=== PATIENT | male | born 1980 | race Caucasian/White ===

== ENCOUNTER 2017-07-27 21:04 | Emergency (ER) | payer OTHER ==
[~2017-07-27] VITALS: Ht 167.6 cm; Wt 103.6 kg
[~2017-07-27 21:04] MED LIST: IBUP-1451 PO
[2017-07-27 21:16] VITALS: TEMP 36.7; Ht 167.6 cm; Wt 103.6 kg
[2017-07-27] MEDS ORDERED: ALBUTEROL 0.083% NEBU SOLN 3 ML VIAL INH STA (21:30)
[2017-07-27] MEDS ORDERED: ALBUTEROL HFA 8 GM INHALER INH ONE (21:30)
[2017-07-27] MEDS ORDERED: SODIUM CHLORIDE 0.9% 1000ML 1,000 ML IV STA (21:30)
[2017-07-27] MEDS ORDERED: KETOROLAC TROMETHAMINE 30 MG/ML VIAL IV STA (21:30)
--- NOTE | 2017-07-27 21:32 | EMERGENCY ROOM VISIT NOTE ---
History Report prepared by Hannah: Ambrose Patel Under the Supervision of: Dr. Juan Antonio Hinkel M.D. First contact with patient: 21:25 Chief Complaint: FLU LIKE SX Stated Complaint: FLU LIKE SX History of Present Illness The patient is a 36 year old male who presents to the Emergency Room with complaints of persistent flu-like symptoms that started 3 days ago. He states that he has been nauseated, and has not been eating well. The patient notes that he has felt tightness in his chest, with fevers, chills, generalized body aches, a cough, and headaches. The patient says that has a bit of right-sided abdominal pain. He denies any diarrhea. The patient says that he last took Tylenol around 1500 today. He notes that he is a non-smoker. Source of History: patient Onset: 3 days ago Position: other (global) Quality: other (flu-like symptoms) Timing: other (persistent) Associated Symptoms: + fevers, + chills, + headache, + cough, + chest pain, + nausea, + abdominal pain, No diarrhea Note: Generalized body aches. Review of Systems See HPI for pertinent positives & negatives. A total of 10 systems reviewed and were otherwise negative. Past Medical & Surgical Medical Problems: (1) No pertinent past medical history Family History No pertinent family history Social History Smoking Status: Former Smoker Marital Status: in relationship Housing Status: lives with family Occupation Status: unemployed Current/Historical Medications Scheduled Azithromycin (Zithromax), 250 MG PO DAILY Prednisone (Prednisone Tab), 0 PO DAILY Allergies Coded Allergies: Dexmethylphenidate (Verified Allergy, Mild, HIVES, 10/20/11) Tramadol (Verified Adverse Reaction, Intermediate, DIZZY, 07/27/17) Fentanyl (Verified Adverse Reaction, Mild, DIZZY, 07/27/17) Physical Exam Vital Signs Date Time Temp Pulse Resp B/P (MAP) Pulse Ox O2 Delivery O2 Flow Rate FiO2 07/27/17 23:39 99 20 137/85 96 07/27/17 23:11 96 20 135/75 98 Room Air 07/27/17 22:33 84 07/27/17 22:24 98 Room Air 07/27/17 22:24 80 18 111/67 98 Room Air 07/27/17 21:16 36.7 106 18 111/75 96 Room Air Physical Exam GENERAL: Awake, alert, well-appearing, in no acute distress HENT: Normocephalic, atraumatic. Oropharynx unremarkable. EYES: Normal conjunctiva. Sclera non-icteric. NECK: Supple. No nuchal rigidity. FROM. No JVD. RESPIRATORY: Bilateral wheezes in the bases. CARDIAC: Regular rate, normal rhythm. Extremities warm and well perfused. Pulses equal. ABDOMEN: Soft, non-distended. No tenderness to palpation. No rebound or guarding. No masses. RECTAL: Deferred. MUSCULOSKELETAL: Chest examination reveals no tenderness. The back is symmetrical on inspection without obvious abnormality. There is no CVA tenderness to palpation. No joint edema. LOWER EXTREMITIES: Calves are equal size bilaterally and non-tender. No edema. No discoloration. NEURO: Normal sensorium. No sensory or motor deficits noted. SKIN: No rash or jaundice noted. Medical Decision & Procedures ER Provider Diagnostic Interpretation: CHEST ONE VIEW PORTABLE CLINICAL HISTORY: 36 years-old Male presenting with Pt c/o SOB. TECHNIQUE: Portable upright AP view of the chest was obtained. COMPARISON: . FINDINGS: Cardiomediastinal silhouette normal. Lungs and pleural spaces clear. Osseous structures normal. Upper abdomen normal. IMPRESSION: 1. No acute cardiopulmonary disease. Electronically signed by: Khoi Cardoso M.D. 07/27/2017 10:08 PM Dictated Date/Time: 07/27/2017 10:08 PM The status of this report is Signed. Draft = Not yet reviewed or approved by Radiologist. Signed = Reviewed and approved by Radiologist. Laboratory Results 07/27/17 22:45 Red Blood Count 5.26, Mean Corpuscular Volume 89.0, Mean Corpuscular Hemoglobin 31.4, Mean Corpuscular Hemoglobin Concent 35.3, Mean Platelet Volume 9.3, Neutrophils (%) (Auto) 59.8, Lymphocytes (%) (Auto) 24.1, Monocytes (%) (Auto) 14.5, Eosinophils (%) (Auto) 1.2, Basophils (%) (Auto) 0.2, Neutrophils # (Auto ) 3.55, Lymphocytes # (Auto) 1.43, Monocytes # (Auto) 0.86, Eosinophils # (Auto ) 0.07, Basophils # (Auto) 0.01 07/27/17 22:45 Test 07/27/17 22:00 07/27/17 22:25 07/27/17 22:45 Influenza Type A Antigen Neg for Influ A (NEG) Influenza Type B Antigen Neg for Influ B (NEG) Urine Color DK YELLOW Urine Appearance CLEAR (CLEAR) Urine pH 5.0 (4.5-7.5) Urine Specific [place] 1.029 (1.000-1.030) Urine Protein NEG (NEG) Urine Glucose (UA) NEG (NEG) Urine Ketones NEG (NEG) Urine Occult Blood NEG (NEG) Urine Nitrite NEG (NEG) Urine Bilirubin NEG (NEG) Urine Urobilinogen NEG (NEG) Urine Leukocyte Esterase NEG (NEG) White Blood Count 5.93 K/uL (4.8-10.8) Red Blood Count 5.26 M/uL (4.7-6.1) Hemoglobin 16.5 g/dL (14.0-18.0) Hematocrit 46.8 % (42-52) Mean Corpuscular Volume 89.0 fL (80-100) Mean Corpuscular Hemoglobin 31.4 pg (25-34) Mean Corpuscular Hemoglobin Concent 35.3 g/dl (32-36) Platelet Count 187 K/uL (130-400) Mean Platelet Volume 9.3 fL (7.4-10.4) Neutrophils (%) (Auto) 59.8 % Lymphocytes (%) (Auto) 24.1 % Monocytes (%) (Auto) 14.5 % Eosinophils (%) (Auto) 1.2 % Basophils (%) (Auto) 0.2 % Neutrophils # (Auto) 3.55 K/uL (1.4-6.5) Lymphocytes # (Auto) 1.43 K/uL (1.2-3.4) Monocytes # (Auto) 0.86 K/uL (0.11-0.59) Eosinophils # (Auto) 0.07 K/uL (0-0.5) Basophils # (Auto) 0.01 K/uL (0-0.2) RDW Standard Deviation 40.6 fL (36.4-46.3) RDW Coefficient of Variation 12.6 % (11.5-14.5) Immature Granulocyte % (Auto) 0.2 % Immature Granulocyte # (Auto) 0.01 K/uL (0.00-0.02) Anion Gap 8.0 mmol/L (3-11) Est Creatinine Clear Calc Drug Dose 98.2 ml/min Estimated GFR () 93.0 Estimated GFR (Non- 80.3 BUN/Creatinine Ratio 10.6 (10-20) Calcium Level 8.8 mg/dl (8.5-10.1) Total Bilirubin 0.3 mg/dl (0.2-1) Direct Bilirubin < 0.1 mg/dl (0-0.2) Aspartate Amino Transf (AST/SGOT) 21 U/L (15-37) Alanine Aminotransferase (ALT/SGPT) 28 U/L (12-78) Alkaline Phosphatase 115 U/L (45-117) Total Protein 8.3 gm/dl (6.4-8.2) Albumin 3.6 gm/dl (3.4-5.0) Labs reviewed by ED physician. Medications Administered Medications (Trade) Dose Ordered Sig/Avelino Route Start Time Stop Time Status Last Admin Dose Admin Albuterol (Ventolin Hfa Inhaler) 2 puffs NOW ONCE INH 07/27/17 21:30 07/27/17 21:33 DC 07/27/17 22:50 2 PUFFS Albuterol Sulfate (Ventolin 0.083% 2.5MG/3ML Neb) 2.5 mg NOW STAT INH 07/27/17 21:30 07/27/17 21:33 DC 07/27/17 22:51 2.5 MG Ketorolac Tromethamine (Toradol Inj) 30 mg NOW STAT IV 07/27/17 21:30 07/27/17 21:33 DC 07/27/17 22:50 30 MG Sodium Chloride 1,000 ml @ 999 mls/hr Q1H1M STAT IV 07/27/17 21:30 07/27/17 22:30 DC 07/27/17 22:50 999 MLS/HR ED Course 2125: Past medical records reviewed. The patient was evaluated in room A4B. A complete history and physical examination was performed. 0: NSS 1000 ml @ 999 mls/hr IV, Toradol Inj 30 mg IV, Ventolin 0.083% 2.5MG/ 3ML Neb 2.5 mg INH. Ventolin Hfa Inhaler 2 puffs INH. Medical Decision Differential diagnosis: Etiologies such as viral syndrome, otitis, pharyngitis, pneumonia, influenza, meningitis, urinary tract infection, sepsis, bacteremia, as well as others were entertained. This is a 36-year-old male who presents the emergency department complaining of cough and upper respiratory-like symptoms. The patient is negative for the flu I will note he is afebrile here and does not have an elevation in his white blood cell count. He was given a breathing treatment with much improvement in his symptoms. I do feel the patient can be safely discharged home with an inhaler and on a prednisone taper. He was also started on azithromycin. Patient and significant other were in agreement with the treatment plan. Medication Reconcilliation Current Medication List: was personally reviewed by me Blood Pressure Screening Patient's blood pressure: Normal blood pressure Impression Primary Impression: Acute bronchitis Scribe Attestation The scribe's documentation has been prepared under my direction and personally reviewed by me in its entirety. I confirm that the note above accurately reflects all work, treatment, procedures, and medical decision making performed by me. Departure Information Dispostion Home / Self-Care Prescriptions Prednisone (Prednisone Tab) 20 Mg Tab 0 PO DAILY, #7 TAB 2 TABS DAILY FOR 2 DAYS, THEN 1 TAB DAILY FOR 2 DAYS, THEN 1/2 TAB DAILY FOR 2 DAYS. Prov: Juan Antonio Hinkle MD 07/27/17 Azithromycin (ZITHROMAX) 250 Mg Tab 250 MG PO DAILY, #4 TAB Prov: Juan Antonio Hinkle MD 07/27/17 Referrals No Doctor, Assigned (PCP) Patient Instructions My [facility] Problem Qualifiers Primary Impression: Acute bronchitis Bronchitis organism: unspecified organism Qualified Codes: J20.9 - Acute bronchitis, unspecified
--- NOTE | 2017-07-27 22:10 | DIAGNOSTIC IMAGING REPORT ---
CHEST ONE VIEW PORTABLE CLINICAL HISTORY: 36 years-old Male presenting with Pt c/o SOB. TECHNIQUE: Portable upright AP view of the chest was obtained. COMPARISON: . FINDINGS: Cardiomediastinal silhouette normal. Lungs and pleural spaces clear. Osseous structures normal. Upper abdomen normal. IMPRESSION: 1. No acute cardiopulmonary disease. Electronically signed by: Khoi Cardoso M.D. 07/27/2017 10:08 PM Dictated Date/Time: 07/27/2017 10:08 PM
[2017-07-27 22:24] VITALS: O2SAT 98
[2017-07-27 22:42] LABS: INFLUENZA B ANTIGEN Neg for Influ B (NEG)
[2017-07-27 23:05] LABS: BASO % 0.2 %; BASO ABS # 0.01 K/uL (0-0.2); EOS % 1.2 %; EOS ABS # 0.07 K/uL (0-0.5); HEMATOCRIT 46.8 % (42-52); HEMOGLOBIN 16.5 g/dL (14.0-18.0); IG# 0.01 K/uL (0.00-0.02); LYMPH % 24.1 %; LYMPH ABS # 1.43 K/uL (1.2-3.4); MEAN CORPUSCULAR HEMOGLOBIN 31.4 pg (25-34); MEAN CORPUSCULAR HGB CONC 35.3 g/dl (32-36); MEAN PLATELET VOLUME 9.3 fL (7.4-10.4); MONO % 14.5 %; MONO ABS # 0.86 K/uL (0.11-0.59); NEUT % 59.8 %; NEUT ABS # 3.55 K/uL (1.4-6.5); PLATELET COUNT 187 K/uL (130-400); RED CELL DISTRIBUTION WIDTH CV 12.6 % (11.5-14.5); RED CELL DISTRIBUTION WIDTH SD 40.6 fL (36.4-46.3); WHITE BLOOD COUNT 5.93 K/uL (4.8-10.8)
[2017-07-27 23:15] LABS: ALBUMIN 3.6 gm/dl (3.4-5.0); ALT/SGPT 28 U/L (12-78); AST/SGOT 21 U/L (15-37); BLOOD UREA NITROGEN 12 mg/dl (7-18); CALCIUM 8.8 mg/dl (8.5-10.1); CARBON DIOXIDE 24 mmol/L (21-32); CREATININE 1.15 mg/dl (0.60-1.40); GLUCOSE 101 mg/dl (70-99); SODIUM 135 mmol/L (136-145)
[2017-07-27 23:17] LABS: ALKALINE PHOSPHATASE 115 U/L (45-117); TOTAL PROTEIN 8.3 gm/dl (6.4-8.2)
[2017-07-27] MEDS ORDERED: PRED20TA2 PO (23:19)
[2017-07-27] MEDS ORDERED: AZIT-60 PO (23:19)
[2017-07-27 23:39] VITALS: BP 137/85; PULSE 99; O2SAT 96
== END 2017-07-27 23:40 | disposition home or self-care (01) ==
LOC: C.EDB 21:07 → C.EDA 23:40
DX: J20.9 Acute bronchitis, unspecified (principal); Z87.891 Personal history of nicotine dependence; Z88.8 Allergy status to other drugs, medicaments and biological substances; Z88.5 Allergy status to narcotic agent; Z88.6 Allergy status to analgesic agent